=== PATIENT | male | born 1995 | race Caucasian/White ===

== ENCOUNTER 2018-07-01 13:54 | Emergency (ER) | payer OTHER ==
[~2018-07-01] VITALS: Ht 167.6 cm; Wt 67.0 kg
[2018-07-01 14:01] VITALS: BP 137/73; PULSE 104; RESP 16; Ht 167.6 cm; Wt 67.0 kg
[2018-07-01] MEDS ORDERED: AMOX1TAB10 PO (14:40)
[2018-07-01] MEDS ORDERED: ACET500C5 PO (14:40)
[2018-07-01] MEDS ORDERED: IBUP800T48 PO (14:40)
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
== END 2018-07-01 15:54 | disposition home or self-care (01) ==
LOC: FTE 13:54
DX: J02.9 Acute pharyngitis, unspecified (principal)
CPT/HCPCS: 99283

== ENCOUNTER 2018-09-23 14:38 | Emergency (ER) | payer OTHER ==
[~2018-09-23] VITALS: Wt 64.6 kg
[~2018-09-23 14:38] MED LIST: ACET500C5 PO; AMOX1TAB10 PO; IBUP800T48 PO
[2018-09-23 14:41] VITALS: BP 129/74; PULSE 76; RESP 20
[2018-09-23] MEDS ORDERED: MUPI22OI2 TOP (17:23)
[2018-09-23] MEDS ORDERED: CLOT30CR24 TOP (17:23)
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
[2018-09-28] MEDS ORDERED: CIPR500T4 PO (09:43)
== END 2018-09-23 17:35 | disposition home or self-care (01) ==
LOC: FTE 14:38
DX: N48.89 Other specified disorders of penis (principal); F17.210 Nicotine dependence, cigarettes, uncomplicated
CPT/HCPCS: 81003; 87086; 87591; Z7502; 99283

== ENCOUNTER 2018-09-26 17:22 | Emergency (ER) | payer OTHER ==
[~2018-09-26] VITALS: Wt 65.0 kg
[~2018-09-26 17:22] MED LIST changes: +CLOT30CR24 TOP; +MUPI22OI2 TOP
[2018-09-26 17:31] VITALS: BP 138/81; PULSE 98; RESP 18
[2018-09-26] MEDS ORDERED: AZITHROMYCIN 500 MG TAB PO ONE (18:00)
[2018-09-26] MEDS ORDERED: CLOT30CR24 TOP (18:10)
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
[2018-09-28] MEDS ORDERED: CIPR500T4 PO (09:43)
== END 2018-09-26 20:00 | disposition home or self-care (01) ==
LOC: FTE 17:22
DX: A74.9 Chlamydial infection, unspecified (principal); F17.210 Nicotine dependence, cigarettes, uncomplicated
CPT/HCPCS: Z7502; Z7610; 99283